=== PATIENT | female | born 1970 | race Caucasian/White ===

== ENCOUNTER 2022-12-08 07:51 | Outpatient (CLI) | payer BC | END 2022-12-08 07:52 | disposition home or self-care (01) | LOC: CSHLAB 07:51 | PROVIDERS: ATTEND Obstetrics & Gynecology | DX: Z01.810 Encounter for preprocedural cardiovascular examination (principal); D06.9 Carcinoma in situ of cervix, unspecified | CPT/HCPCS: 93005; 93010 ==

== ENCOUNTER 2022-12-10 10:27 | Day surgery (SDC) | payer BC ==
[2022-12-08 08:43] LABS: Hemoglobin 14.3 g/dL (12.0-15.5); Mean Corpuscular HGB CONC 32.7 g/dL (32.0-36.0); Mean Corpuscular Hemoglobin 29.8 pg (27.0-33.0); Mean Platelet Volume 11.7 fl (7.4-10.4); Platelet Count 230 10x3/uL (150-450); RBC Distribution Width 12.3 % (11.5-14.5); White Blood Cell (WBC) Count 7.6 10x3/uL (3.5-10.5)
[2022-12-08 08:56] LABS: BHCG - Serum Negative (NEGATIVE); Pregs Control Background? CLEAR/WHITE (CLR/WHITE); Pregs Control Bar Appear? YES (CONTROL BAR)
[2022-12-08 09:00] LABS: Anion Gap 14 mmol/L (10-20); BUN (Urea Nitrogen) 11 mg/dL (9.8-20.1); Calc. Creatinine Clearance 0 mL/min (70-130); Calcium 9.3 mg/dL (7.8-10.44); Carbon Dioxide 23 mmol/L (22-29); Chloride 105 mmol/L (98-107); Estimated GFR 85; Glucose 102 mg/dL (70-105); Potassium 3.7 mmol/L (3.5-5.1); Sodium 138 mmol/L (136-145)
[2022-12-08 10:46] VITALS: BMI 33.5
[2022-12-10] MEDS ORDERED: Gabapentin 300 MG CAP ONE (10:39)
[2022-12-10] MEDS ORDERED: Famotidine/PF 20 mg/2ml Vial ONE (10:39)
[2022-12-10] MEDS ORDERED: CeleCOXIB 100 MG CAP ONE (10:40)
[2022-12-10] MEDS ORDERED: Bupivacaine HCl 0.5%/Epinephrine 1:200,000/PF 30 ml Vial ONE (11:16)
[2022-12-10] MEDS ORDERED: Glycopyrrolate 0.2 MG/ML 5 ML SYRINGE ONE (11:23)
[2022-12-10] MEDS ORDERED: Fentanyl 250 MCG/5 ML VIAL ONE (11:23)
[2022-12-10] MEDS ORDERED: Midazolam HCl 2 mg/2 ml Vial ONE (11:23)
[2022-12-10] MEDS ORDERED: Dexamethasone 20 MG/5 ML VIAL ONE (11:23)
[2022-12-10] MEDS ORDERED: PROPOFOL 20 ML ONE (11:23)
[2022-12-10] MEDS ORDERED: Ketorolac Tromethamine 30 MG/ML VIAL ONE (11:23)
[2022-12-10] MEDS ORDERED: Lidocaine 1% PF 5 ML VIAL ONE (11:23)
[2022-12-10] MEDS ORDERED: Ondansetron PF 4 MG/2 ML Vial ONE (11:23)
[2022-12-10] MEDS ORDERED: Rocuronium Bromide 10 MG/ML (10ML VIAL) ONE (11:23)
[2022-12-10] MEDS ORDERED: CEFAZOLIN 2 GM VIAL ONE (12:05)
== END 2022-12-10 15:25 | disposition home or self-care (01) ==
LOC: CSHSDC 10:27
PROVIDERS: ATTEND Obstetrics & Gynecology
PROC: 0UT94ZZ Resection of Uterus, Percutaneous Endoscopic Approach (ICD-10-PCS; principal; 2022-12-10)
PROC: 0UT74ZZ Resection of Bilateral Fallopian Tubes, Percutaneous Endoscopic Approach (ICD-10-PCS; principal; 2022-12-10)
DX: N87.0 Mild cervical dysplasia (principal); D25.9 Leiomyoma of uterus, unspecified; N80.03 Adenomyosis of the uterus; I10 Essential (primary) hypertension; E66.9 Obesity, unspecified; Z79.899 Other long term (current) drug therapy; Z88.0 Allergy status to penicillin; Z90.49 Acquired absence of other specified parts of digestive tract; Z68.33 Body mass index [BMI] 33.0-33.9, adult
CPT/HCPCS: 36415; 80048; 84703; 85027; 86850; 86900; 86901; 88307; C1776; J1100; J1885; J2250; J2405; J2704; J3010; S0028

== ENCOUNTER 2024-11-08 08:57 | Outpatient (CLI) | payer BC | END 2024-11-08 08:58 | disposition home or self-care (01) | LOC: CSHSLEEP 08:57 | PROVIDERS: ATTEND Internal Medicine Critical Care Medicine | DX: G47.33 Obstructive sleep apnea (adult) (pediatric) (principal); R06.83 Snoring | CPT/HCPCS: 95800 ==